=== PATIENT | male | born 1960 | race Caucasian/White ===

== ENCOUNTER 2022-08-04 15:42 | Observation (INO) | payer OTHER ==
[~2022-08-04 15:42] MED LIST: Iopamidol 370 76% 100 ML VIAL ONE
[2022-08-04 17:27] LABS: #Eosinphils 0.2 10x3/uL (0.0-0.5); #Monocytes 0.7 10x3/uL (0.0-1.1); #Neutrophils 5.5 10x3/uL (1.5-8.4); %Basophils 0.3 % (0.0-2.0); %Lymphocytes 15.2 % (18.0-47.0); %Monocytes 9.2 % (0.0-10.0); Mean Corpuscular HGB CONC 33.2 g/dL (32.0-36.0); Mean Corpuscular Hemoglobin 29.9 pg (27.0-33.0); Mean Platelet Volume 10.1 fl (7.4-10.4); Platelet Count 210 10x3/uL (150-450); RBC Distribution Width 12.1 % (11.5-14.5); Red Blood Cell (RBC) Count 4.69 10x6/uL (4.32-5.72); White Blood Cell (WBC) Count 7.5 10x3/uL (3.5-10.5)
[2022-08-04 17:44] LABS: PTT 28.3 sec (22.0-33.0); Prothrombin Time 11.1 sec (9.5-12.1)
[2022-08-04 17:50] LABS: ALT (SGPT) 16 U/L (8-55); AST (SGOT) 16 U/L (5-34); Albumin 4.1 g/dL (3.4-4.8); Alkaline Phosphatase 86 U/L (40-110); Anion Gap 14 mmol/L (10-20); BUN (Urea Nitrogen) 28 mg/dL (8.4-25.7); Bilirubin, Total 0.3 mg/dL (0.2-1.2); CK (CPK) 91 U/L (30-200); Calc. Creatinine Clearance 0 mL/min (70-130); Calcium 8.8 mg/dL (7.8-10.44); Carbon Dioxide 23 mmol/L (23-31); Chloride 106 mmol/L (98-107); Estimated GFR 45; Globulin 2.2 g/dL (2.4-3.5); Glucose 104 mg/dL (80-115); Potassium 4.5 mmol/L (3.5-5.1); Protein, Total 6.3 g/dL (5.8-8.1); Sodium 138 mmol/L (136-145)
[2022-08-04] MEDS ORDERED: Heparin 5,000 UNITS/ML VIAL ONE (18:03)
[2022-08-04] MEDS ORDERED: Heparin 25,000 units/D5W 500 ML ONE (18:04)
[2022-08-04] MEDS ORDERED: Heparin 1,000 UNITS/ML VIAL ONE (18:05)
[2022-08-04] MEDS ORDERED: Senokot S 8.6-50 MG TAB PO PRN (19:26)
[2022-08-04] MEDS ORDERED: Calcium Carbonate 500 MG ChewTAB PO PRN (19:26)
[2022-08-04] MEDS ORDERED: HYDROcodone/Acetaminophen 5/325 mg Tablet PO PRN (19:26)
[2022-08-04] MEDS ORDERED: Guaifenesin DM 100-10/5 ML UDCUP PO PRN (19:26)
[2022-08-04] MEDS ORDERED: Acetaminophen 325 MG TAB PO PRN (19:26)
[2022-08-04] MEDS ORDERED: Ondansetron PF 4 MG/2 ML Vial IVP PRN (19:26)
[2022-08-04] MEDS ORDERED: Zolpidem Tartrate 5 MG TAB PO PRN (19:26)
[2022-08-04] MEDS ORDERED: Lactated Ringer's 1,000 ML IV SCH (19:45)
[2022-08-04] MEDS ORDERED: Tamsulosin HCl 0.4 MG CAP PO SCH (21:00)
[2022-08-04] MEDS ORDERED: Atorvastatin Calcium 10 MG TAB PO SCH (21:00)
[2022-08-04 21:58] VITALS: BMI 26.6
[2022-08-05 04:46] LABS: Anion Gap 12 mmol/L (10-20); BUN (Urea Nitrogen) 19 mg/dL (8.4-25.7); CK (CPK) 61 U/L (30-200); Calc. Creatinine Clearance 63 mL/min (70-130); Calcium 8.8 mg/dL (7.8-10.44); Carbon Dioxide 24 mmol/L (23-31); Chloride 107 mmol/L (98-107); Estimated GFR 66; Glucose 100 mg/dL (80-115); Potassium 4.2 mmol/L (3.5-5.1); Sodium 139 mmol/L (136-145)
[2022-08-05] MEDS ORDERED: Bupropion 100 MG SR TAB PO SCH (09:00)
[2022-08-05 12:59] VITALS: BP 144/76; TEMP 97.7
[2022-08-05] MEDS ORDERED: Apixaban 5 MG TAB PO SCH (21:00)
[2022-08-05] MEDS ORDERED: Tamsulosin HCl 0.4 MG CAP PO SCH (21:00)
[2022-08-06] MEDS ORDERED: Bupropion 150 MG XL TAB PO SCH (09:00)
[2022-08-06] MEDS ORDERED: Atorvastatin Calcium 20 MG TAB PO SCH (09:00)
[2022-08-12] MEDS ORDERED: Apixaban 5 MG TAB PO SCH (21:00)
== END 2022-08-05 15:54 | disposition home or self-care (01) ==
LOC: CSHERS 15:42 → CSHTELE 21:22
PROVIDERS: ADMIT Student in an Organized Health Care Education/Training Program; ATTEND Internal Medicine
DX: I82.401 Acute embolism and thrombosis of unspecified deep veins of right lower extremity (principal); I26.99 Other pulmonary embolism without acute cor pulmonale; I82.411 Acute embolism and thrombosis of right femoral vein; E78.5 Hyperlipidemia, unspecified; N40.0 Benign prostatic hyperplasia without lower urinary tract symptoms; F32.A Depression, unspecified; R06.02 Shortness of breath; N28.9 Disorder of kidney and ureter, unspecified; Z20.822 Contact with and (suspected) exposure to COVID-19; Z79.899 Other long term (current) drug therapy; Z79.01 Long term (current) use of anticoagulants
CPT/HCPCS: 36415; 71045; 71275; 80048; 80053; 82550; 83880; 84484; 85025; 85610; 85730; 86140; 93005; 93306; 96366; 96372; 96374; 96375; 96376; G0378; J1644; J1650; J7120; Q9967; U0003; U0005